=== PATIENT | female | born 1970 | race African-American/Black ===

== ENCOUNTER 2021-07-11 11:00 | Emergency (ER) | payer OTHER ==
[~2021-07-11] VITALS: Ht 162.6 cm; Wt 68.0 kg
[~2021-07-11 11:00] MED LIST: BACTRIM DS TAB1 EACH PO; IBUPROFEN 800800 M1 PO; NOHOMEMEDICATIONS; TESSALON200 MG PO; VENTOLIN HFA 1818 GM INH
[2021-07-11 11:30] VITALS: BP 115/77
[2021-07-11] MEDS ORDERED: VENTOLIN HFA 1818 GM INH ×2 (12:24→12:43)
[2021-07-11] MEDS ORDERED: TESSALON PERLE100 MG PO ×2 (12:24→12:43)
== END 2021-07-11 13:02 | disposition home or self-care (01) ==
LOC: ER 11:00
DX: U07.1 COVID-19 (principal)